=== PATIENT | male | born 1955 | race Caucasian/White ===

== ENCOUNTER 2022-09-01 14:20 | Emergency (ER) | payer OTHER ==
[~2022-09-01] VITALS: Ht 177.8 cm; Wt 90.7 kg
[~2022-09-01 14:20] MED LIST: ALLOPURINOL300 MG PO; FARXIGA PO; FINASTERIDE5 MG PO; GLIMEPIRIDE2 MG PO; JANUVIA100 MG PO; LOSARTAN POTASS25 MG PO; LOVASTATIN10 MG PO; VIT D2 PO
[2022-09-01] MEDS ORDERED: LACTATED RINGER'S 1,000 ML IV ONE (14:30)
[2022-09-01 14:42] LABS: BASOPHILS # (AUTO) 0.1 (0.0-0.1); BASOPHILS % 0.4 % (0.0-1.0); EOSINOPHILS # (AUTO) 0.1 (0.0-0.4); EOSINOPHILS % 0.4 % (0.0-6.0); HEMATOCRIT 41.9 % (38.2-49.6); HEMOGLOBIN 14.2 g/dL (14.0-18.0); LYMPHOCYTES # (AUTO) 0.7 (1.0-3.2); LYMPHOCYTES % 6.5 % (18.0-39.1); MEAN CORPUSCULAR HEMOGLOBIN 30.6 pg (28-32); MEAN CORPUSCULAR HGB CONC 33.9 g/dL (31-35); MEAN CORPUSCULAR VOLUME 90.3 fL (81-99); MONOCYTES # (AUTO) 0.7 (0.2-0.8); MONOCYTES % 6.1 % (4.4-11.3); NEUTROPHILS # (AUTO) 9.6 (2.1-6.9); NEUTROPHILS % 85.9 % (38.7-80.0); PLATELET COUNT 203 x10e3/uL (140-360); RED BLOOD COUNT 4.64 x10e6/uL (4.3-5.7); RED CELL DISTRIBUTION WIDTH 12.6 % (11.7-14.4)
[2022-09-01] MEDS ORDERED: SODIUM CHLORIDE 0.9% 1000ML 1,000 ML IV ONE (15:00)
[2022-09-01 15:04] LABS: ALBUMIN 3.8 g/dL (3.5-5.0); ALBUMIN/GLOBULIN RATIO 1.4 (0.8-2.0); ANION GAP 17.5 mmol/L (8-16); CALCIUM 8.8 mg/dL (8.4-10.2); CREATININE, SERUM 1.2 mg/dL (0.72-1.25); POTASSIUM 4.5 mmol/L (3.5-5.1)
[2022-09-01] MEDS ORDERED: INSULIN REGULAR, HUMAN 100 UNIT/1 ML IV ONE (17:00)
[2022-09-01 18:49] VITALS: BP 115/77
== END 2022-09-01 18:53 | disposition home or self-care (01) ==
LOC: ER 14:27
DX: E11.65 Type 2 diabetes mellitus with hyperglycemia (principal); R94.31 Abnormal electrocardiogram [ECG] [EKG]; E78.5 Hyperlipidemia, unspecified; M10.9 Gout, unspecified
CPT/HCPCS: 36415; 80053; 82948; 83735; 85025; 93005; 99284; J7030; J7121

== ENCOUNTER 2022-09-09 21:16 | Observation (INO) | payer OTHER ==
[~2022-09-09] VITALS: Ht 177.8 cm; Wt 90.7 kg
[2022-09-09] MEDS ORDERED: SODIUM CHLORIDE 0.9% 1000ML 1,000 ML IV ONE (21:30)
[2022-09-09 22:18] LABS: BASOPHILS # (AUTO) 0.1 (0.0-0.1); BASOPHILS % 0.6 % (0.0-1.0); EOSINOPHILS # (AUTO) 0.2 (0.0-0.4); EOSINOPHILS % 1.2 % (0.0-6.0); HEMATOCRIT 42.8 % (38.2-49.6); HEMOGLOBIN 14.1 g/dL (14.0-18.0); LYMPHOCYTES # (AUTO) 1.2 (1.0-3.2); LYMPHOCYTES % 9.8 % (18.0-39.1); MEAN CORPUSCULAR HEMOGLOBIN 30.9 pg (28-32); MEAN CORPUSCULAR HGB CONC 32.9 g/dL (31-35); MEAN CORPUSCULAR VOLUME 93.9 fL (81-99); MONOCYTES # (AUTO) 0.7 (0.2-0.8); NEUTROPHILS # (AUTO) 10.1 (2.1-6.9); NEUTROPHILS % 81.4 % (38.7-80.0); PLATELET COUNT 254 x10e3/uL (140-360); RED BLOOD COUNT 4.56 x10e6/uL (4.3-5.7); RED CELL DISTRIBUTION WIDTH 13.1 % (11.7-14.4)
[2022-09-09 22:38] LABS: ALBUMIN 3.5 g/dL (3.5-5.0); ALBUMIN/GLOBULIN RATIO 1.4 (0.8-2.0); ANION GAP 15.5 mmol/L (8-16); CALCIUM 8.3 mg/dL (8.4-10.2); CREATININE, SERUM 1.42 mg/dL (0.72-1.25); POTASSIUM 3.5 mmol/L (3.5-5.1)
[2022-09-09] MEDS ORDERED: IOPAMIDOL 370 MG/ML 100 ML INFUS..BTL INJ ONE (23:33)
[2022-09-09] MEDS ORDERED: SODIUM CHLORIDE 0.9% 1000ML 1,000 ML IV SCH (23:45)
[2022-09-10] MEDS ORDERED: DEXTROSE 50% SYRINGE 50 ML IV PRN (00:45)
[2022-09-10] MEDS ORDERED: ONDANSETRON HCL INJ 2MG/ML 2ML 2 MG/ML VIAL IV PRN (00:45)
[2022-09-10 00:54] LABS: BACTERIA,URINE RARE /HPF; EPITHELIAL CELLS,URINE RARE /LPF; RBC,URINE 0-5 /HPF (0-5)
[2022-09-10 00:55] LABS: CLARITY,URINE CLEAR (CLEAR); COLOR,URINE YELLOW (YELLOW); KETONES,URINE NEGATIVE (NEGATIVE); LEUKOCYTE ESTERASE ,URINE NEGATIVE (NEGATIVE); NITRITE,URINE NEGATIVE (NEGATIVE); PROTEIN,URINE DIPSTICK NEGATIVE (NEGATIVE); URINE UROBILINOGEN 0.2 mg/dL (0.2 - 1)
[2022-09-10 06:06] LABS: CREATINE KINASE 153 IU/L (30-200)
[2022-09-10 07:20] LABS: BASOPHILS % 0.5 % (0.0-1.0); EOSINOPHILS # (AUTO) 0.2 (0.0-0.4); EOSINOPHILS % 2.1 % (0.0-6.0); HEMATOCRIT 41.9 % (38.2-49.6); HEMOGLOBIN 13.3 g/dL (14.0-18.0); LYMPHOCYTES # (AUTO) 1.6 (1.0-3.2); LYMPHOCYTES % 20.8 % (18.0-39.1); MEAN CORPUSCULAR HEMOGLOBIN 30.3 pg (28-32); MEAN CORPUSCULAR HGB CONC 31.7 g/dL (31-35); MEAN CORPUSCULAR VOLUME 95.4 fL (81-99); MONOCYTES # (AUTO) 0.6 (0.2-0.8); MONOCYTES % 7.7 % (4.4-11.3); NEUTROPHILS # (AUTO) 5.1 (2.1-6.9); PLATELET COUNT 239 x10e3/uL (140-360); RED BLOOD COUNT 4.39 x10e6/uL (4.3-5.7); RED CELL DISTRIBUTION WIDTH 13.2 % (11.7-14.4)
[2022-09-10] MEDS ORDERED: INSULIN REGULAR, HUMAN 100 UNIT/1 ML SQ SCH (07:30)
[2022-09-10 07:36] LABS: ALBUMIN 3.3 g/dL (3.5-5.0); ALBUMIN/GLOBULIN RATIO 1.2 (0.8-2.0); ANION GAP 14.8 mmol/L (8-16); CALCIUM 8.8 mg/dL (8.4-10.2); CREATININE, SERUM 1.13 mg/dL (0.72-1.25); POTASSIUM 4.8 mmol/L (3.5-5.1)
[2022-09-10] MEDS ORDERED: INSULIN GLARGINE 100 UNITS/ML VIAL SQ SCH (09:00)
[2022-09-10] MEDS ORDERED: METRONIDAZOLE 250MG/NS 50ML 50 ML IV SCH (14:00)
== END 2022-09-10 10:24 | disposition home or self-care (01) ==
LOC: ER 21:20 → ERHOLD 09-10 00:40
PROVIDERS: ADMIT Family Medicine; ATTEND Family Medicine
DX: R16.0 Hepatomegaly, not elsewhere classified (principal); K57.90 Diverticulosis of intestine, part unspecified, without perforation or abscess without bleeding; J98.11 Atelectasis; R19.7 Diarrhea, unspecified; N17.9 Acute kidney failure, unspecified; R55 Syncope and collapse; E86.0 Dehydration; Z20.822 Contact with and (suspected) exposure to COVID-19
CPT/HCPCS: 0223U; 36415 ×2; 70450; 74177; 80053 ×2; 81001; 82550; 82553; 83690; 84484 ×2; 85025 ×2; 93005; 99285; G0378; J7030; Q9967

== ENCOUNTER → 2024-05-16 | Day surgery (SDC) | payer OTHER ==
[2024-05-15 15:50] LABS: BASOPHILS # (AUTO) 0.1 (0.0-0.1); EOSINOPHILS # (AUTO) 0.1 (0.0-0.4); EOSINOPHILS % 1.5 % (0.0-6.0); HEMATOCRIT 57.7 % (38.2-49.6); HEMOGLOBIN 18.5 g/dL (14.0-18.0); LYMPHOCYTES # (AUTO) 1.4 (1.0-3.2); LYMPHOCYTES % 17.9 % (18.0-39.1); MEAN CORPUSCULAR HEMOGLOBIN 30.6 pg (28-32); MEAN CORPUSCULAR HGB CONC 32.1 g/dL (31-35); MEAN CORPUSCULAR VOLUME 95.5 fL (81-99); MONOCYTES # (AUTO) 0.7 (0.2-0.8); MONOCYTES % 8.5 % (4.4-11.3); NEUTROPHILS # (AUTO) 5.4 (2.1-6.9); NEUTROPHILS % 70.3 % (38.7-80.0); PLATELET COUNT 223 x10e3/uL (140-360); RED BLOOD COUNT 6.04 x10e6/uL (4.3-5.7); RED CELL DISTRIBUTION WIDTH 13.1 % (11.7-14.4); WHITE BLOOD COUNT 7.75 x10e3/uL (4.8-10.8)
[~2024-05-16] MED LIST changes: +FENTANYL CITRATE/PF 100MCG/2 ML INJ ONE; +GLARGINE SQ; +HYOSCYAMINE SULFATE 0.5 MG/ML INJ ONE; +IRBESARTAN150 MG PO; +JARDIANCE25 MG PO; +LACTATED RINGER'S 1,000 ML ONE; +LIDOCAINE HCL 2% LOCAL INJ 5 ML SDV VIAL INJ ONE; +LIPITOR20 MG PO; +OZEMPIC2 MG/0.75; +PROPOFOL IV EMULSION 10 MG/ML 20 ML VIAL ONE; +TRICOR48 MG PO; +XYOSTED
[2024-05-16 13:55] VITALS: BP 102/91; PULSE 102; RESP 16; TEMP 98.1; O2SAT 95
== END | disposition home or self-care (01) ==
LOC: OR 06:00
PROVIDERS: ATTEND Internal Medicine Gastroenterology
DX: Z12.11 Encounter for screening for malignant neoplasm of colon (principal); D12.5 Benign neoplasm of sigmoid colon; K57.30 Diverticulosis of large intestine without perforation or abscess without bleeding; K64.8 Other hemorrhoids; E11.9 Type 2 diabetes mellitus without complications; I10 Essential (primary) hypertension; M10.9 Gout, unspecified; Z01.810 Encounter for preprocedural cardiovascular examination; Z01.812 Encounter for preprocedural laboratory examination; Z79.85 Long-term (current) use of injectable non-insulin antidiabetic drugs; Z79.84 Long term (current) use of oral hypoglycemic drugs; Z79.899 Other long term (current) drug therapy; Z80.0 Family history of malignant neoplasm of digestive organs
CPT/HCPCS: 36415; 45385; 85025; 93005; J1980; J2003; J2704; J3010; J7121